=== PATIENT | female | born 1985 | race Caucasian/White ===

== ENCOUNTER 2020-06-25 15:44 | Emergency (ER) | payer MEDICAID ==
[~2020-06-25] VITALS: Ht 160 cm; Wt 49.0 kg
[~2020-06-25 15:44] MED LIST: LEVO500T21 PO; METR500T PO
[2020-06-25] MEDS ORDERED: TETANUS-DIPTH-ACEL PERTUSSIS 0.5ML SYR Tdap IM ONE (17:15)
[2020-06-25] MEDS ORDERED: IBUPROFEN 600 MG TAB PO ONE (17:15)
[2020-06-25 18:44] VITALS: BP 125/75
== END 2020-06-25 18:34 | disposition home or self-care (01) ==
LOC: ER 15:44
DX: S50.02XA Contusion of left elbow, initial encounter (principal); S50.01XA Contusion of right elbow, initial encounter; J32.9 Chronic sinusitis, unspecified; Y04.0XXA Assault by unarmed brawl or fight, initial encounter; Y93.89 Activity, other specified; Y92.89 Other specified places as the place of occurrence of the external cause; Y99.8 Other external cause status
CPT/HCPCS: 70450; 73080; 90715

== ENCOUNTER 2021-05-20 13:54 | Emergency (ER) | payer MEDICAID ==
[~2021-05-20] VITALS: Ht 160 cm; Wt 47.6 kg
[~2021-05-20 13:54] MED LIST changes: -LEVO500T21 PO; +LEVO500T31 PO
[2021-05-20] MEDS ORDERED: PANTOPRAZOLE 40 MG/10 ML VIAL INJ IV ONE (14:30)
[2021-05-20] MEDS ORDERED: MORPHINE SULFATE 4 MG/ML SYR/VIAL IV ONE (14:30)
[2021-05-20] MEDS ORDERED: SODIUM CHLORIDE 0.9% 1,000 ML IVB ONE (14:30)
[2021-05-20] MEDS ORDERED: PROCHLORPERAZINE EDISYLATE 5 MG/ML 2ML VIAL IV ONE (14:30)
[2021-05-20 15:18] LABS: Basophils # (auto) 0 10 ^3/uL (0-0.2); Basophils % (auto) 0.8 % (0.0-2.0); Eosinophils # (auto) 0.1 10 ^3/uL (0-0.8); Eosinophils % (auto) 1.5 % (0.0-7.0); Hemoglobin 14.3 g/dL (12.2-16.2); Lymphocytes # (auto) 1.6 10 ^3/uL (0.4-5.4); Mean Corpuscular Hgb Conc. 33.4 g/dL (32.0-36.0); Mean Corpuscular Volume 89.9 fL (80.0-100.0); Monocytes # (auto) 0.5 10 ^3/uL (0-1.3); Monocytes % (auto) 7.9 % (0.0-12.0); Neutrophils # (auto) 3.8 10 ^3/uL (1.6-8.6); Neutrophils % (auto) 63.8 % (37.0-80.0); Nucleated Red Blood Cells % 0.1 %; Red Blood Cells 4.78 10^6/uL (4.0-5.20); Red Cell Distribution Width 14.4 % (11.8-14.3)
[2021-05-20 15:40] LABS: Albumin 3.8 g/dL (3.4-5.0); Calcium 8.9 mg/dL (8.5-10.1); Potassium 3.9 mmol/L (3.5-5.1)
[2021-05-20 15:45] LABS: BUN/Creatinine Ratio 22.6; Bilirubin, Total 0.6 mg/dL (0.2-1.0); Total Protein 7.6 g/dL (6.4-8.2)
[2021-05-20 16:43] LABS: Urine Bacteria FEW /hpf (None Seen); Urine Blood 3+ /uL (Negative); Urine Mucus FEW (None Seen); Urine Specific Gravity 1.017 (1.001-1.035); Urine WBC 2 /hpf (0 - 5)
[2021-05-20 18:34] VITALS: BP 111/48
== END 2021-05-20 19:52 | disposition home or self-care (01) ==
LOC: ER 13:54
DX: K29.70 Gastritis, unspecified, without bleeding (principal); F12.10 Cannabis abuse, uncomplicated; Z32.02 Encounter for pregnancy test, result negative
CPT/HCPCS: 36415; 74176; 80053; 81001; 81025; 83690; 85025; 96361; 96374; 96375; 99284; C9113; J0780; J2270; J7030; 96360

== ENCOUNTER 2021-10-13 17:11 | Emergency (ER) | payer MEDICAID ==
[~2021-10-13] VITALS: Ht 160 cm; Wt 47.6 kg
[2021-10-13 19:43] LABS: Basophils # (auto) 0 10 ^3/uL (0-0.2); Basophils % (auto) 0.5 % (0.0-2.0); Eosinophils # (auto) 0.1 10 ^3/uL (0-0.8); Eosinophils % (auto) 1.6 % (0.0-7.0); Hematocrit 39.8 % (36.0-46.0); Hemoglobin 13.1 g/dL (12.2-16.2); Lymphocytes # (auto) 1.8 10 ^3/uL (0.4-5.4); Lymphocytes % (auto) 40.9 % (10.0-50.0); Mean Corpuscular Hemoglobin 29.3 pg (28.0-32.0); Mean Corpuscular Hgb Conc. 32.9 g/dL (32.0-36.0); Monocytes # (auto) 0.4 10 ^3/uL (0-1.3); Monocytes % (auto) 9.8 % (0.0-12.0); Neutrophils # (auto) 2.1 10 ^3/uL (1.6-8.6); Neutrophils % (auto) 47.2 % (37.0-80.0); Nucleated Red Blood Cells % 0.1 %; Red Blood Cells 4.48 10^6/uL (4.0-5.20); Red Cell Distribution Width 14.7 % (11.8-14.3); White Blood Cell 4.5 10^3/uL (4.4-10.8)
[2021-10-13 19:58] LABS: Albumin 3.8 g/dL (3.4-5.0); Calcium 8.7 mg/dL (8.5-10.1); INR 1.07 (0.9-1.15); Potassium 3.7 mmol/L (3.5-5.1)
[2021-10-13 20:07] LABS: BUN/Creatinine Ratio 29.8; Bilirubin, Total 0.2 mg/dL (0.2-1.0); Total Protein 7.4 g/dL (6.4-8.2)
[2021-10-13] MEDS ORDERED: IOHEXOL 300 MG/ML 100ML BOTTLE IJ ONE (20:14)
[2021-10-13 20:40] LABS: Urine Bacteria NONE SEEN /hpf (None Seen); Urine Blood Negative /uL (Negative); Urine Mucus FEW (None Seen); Urine Specific Gravity 1.022 (1.001-1.035); Urine WBC 1 /hpf (0 - 5)
[2021-10-13] MEDS ORDERED: PERCOT PO (23:30)
[2021-10-13] MEDS ORDERED: CIPR-273 PO (23:30)
[2021-10-13] MEDS ORDERED: ONDA-144 PO (23:30)
[2021-10-13] MEDS ORDERED: FAMO20TA10 PO (23:30)
[2021-10-13 23:41] VITALS: BP 121/79
== END 2021-10-13 23:42 | disposition home or self-care (01) ==
LOC: ER 17:11
DX: K29.70 Gastritis, unspecified, without bleeding (principal); K58.9 Irritable bowel syndrome, unspecified; Z79.899 Other long term (current) drug therapy
CPT/HCPCS: 36415; 74177; 80053; 81001; 81025; 83690; 84484; 85025; 85610; 93005; 99285; Q9967

== ENCOUNTER 2022-12-18 05:09 | Emergency (ER) | payer MEDICAID ==
[~2022-12-18] VITALS: Ht 160 cm; Wt 56.2 kg
[~2022-12-18 05:09] MED LIST changes: +CIPR-273 PO; +FAMO20TA10 PO; +ONDA-144 PO; +PERCOT PO
[2022-12-18 07:55] VITALS: BP 135/87
[2022-12-18 09:30] LABS: Basophils # (auto) 0 10 ^3/uL (0-0.2); Basophils % (auto) 0.1 % (0.0-2.0); Eosinophils # (auto) 0 10 ^3/uL (0-0.8); Eosinophils % (auto) 0.1 % (0.0-7.0); Hematocrit 43.1 % (36.0-46.0); Hemoglobin 14.8 g/dL (12.2-16.2); Lymphocytes # (auto) 0.7 10 ^3/uL (0.4-5.4); Lymphocytes % (auto) 7.6 % (10.0-50.0); Mean Corpuscular Hgb Conc. 34.3 g/dL (32.0-36.0); Mean Corpuscular Volume 87.4 fL (80.0-100.0); Monocytes # (auto) 0.5 10 ^3/uL (0-1.3); Monocytes % (auto) 4.8 % (0.0-12.0); Neutrophils # (auto) 8.4 10 ^3/uL (1.6-8.6); Neutrophils % (auto) 87.4 % (37.0-80.0); Red Blood Cells 4.94 10^6/uL (4.0-5.20); Red Cell Distribution Width 13.5 % (11.8-14.3); White Blood Cell 9.7 10^3/uL (4.4-10.8)
[2022-12-18 09:47] LABS: Albumin 4.2 g/dL (3.4-5.0); Calcium 8.9 mg/dL (8.5-10.1); Potassium 3.7 mmol/L (3.5-5.1)
[2022-12-18 09:53] LABS: BUN/Creatinine Ratio 15.6; Bilirubin, Total 0.7 mg/dL (0.2-1.0); Total Protein 7.9 g/dL (6.4-8.2)
[2022-12-18] MEDS ORDERED: AZITTAB PO (10:15)
[2022-12-18] MEDS ORDERED: PROM1SOL4 PO (10:15)
== END 2022-12-18 10:46 | disposition home or self-care (01) ==
LOC: ER 05:09
DX: J40 Bronchitis, not specified as acute or chronic (principal); Z77.120 Contact with and (suspected) exposure to mold (toxic); Z20.822 Contact with and (suspected) exposure to COVID-19
CPT/HCPCS: 36415; 71045; 80053; 85025; 87426; 87804; 93005